=== PATIENT | male | born 1960 | race Caucasian/White ===

== ENCOUNTER 2020-08-09 10:31 | Emergency (ER) | payer OTHER, SELFPAY ==
--- NOTE | ~2020-08-09 | XR_ITS ---
EXAMINATION: XR CHEST CLINICAL INFORMATION: NG tube placement COMPARISON: None TECHNIQUE: Frontal view of the chest was obtained. FINDINGS: Enteric tube terminates in the stomach. Cardiac leads overlie the chest. The lungs are well expanded. There is no focal consolidation, edema, or effusion. No pneumothorax. The cardiomediastinal silhouette is within normal limits. No acute osseous abnormality. XR/XR chest 1V IMPRESSION: Clear lungs. Enteric tube terminating in the stomach.
--- NOTE | ~2020-08-09 | CT_ITS ---
EXAMINATION: CT ABDOMEN AND PELVIS WITHOUT CONTRAST CLINICAL INFORMATION: Nausea, vomiting and diarrhea for 3 weeks. COMPARISON: None TECHNIQUE: Multidetector volumetric imaging was performed from the superior aspect of the liver through the pubic symphysis. Sagittal and coronal reformatted images were obtained on the technologist's workstation. This CT examination was performed using dose optimization techniques as appropriate, variously including the following: *Automated exposure control *Adjustment of mA and/or kV according to patient size (this includes techniques or standardized protocols for targeted exams where dose is matched to indication/reason for exam; i.e. extremities or head) *Use of iterative reconstruction technique DLP: 575 mGy-cm FINDINGS: Evaluation of the lung bases is limited due to respiratory motion artifact, however, a small amount of dependent atelectasis is appreciated. The liver demonstrates normal size, contour and attenuation. The gallbladder is normal in appearance. The pancreas, spleen and adrenal glands are unremarkable. The stomach is overly distended and debris-filled. There is a prominent air-fluid level within the stomach. The pylorus and proximal portion of the duodenum are prominently distended. In the region of the ampulla there are prominent ill-defined coarse calcification in addition to soft tissue fullness which possibly represents the pancreatic head versus a mass (best appreciated on coronal image 56/97). There is abrupt transition to normal caliber distal duodenum. The jejunum and ileum are normal in caliber containing fluid and air. Normal caliber colon containing a normal amount of air. The appendix is normal in appearance. Symmetrically sized kidneys. No renal calculi or hydronephrosis. There is an approximately 1.8 cm cyst within the lower pole of the right kidney which contains some peripheral calcifications. A smaller simple appearing cyst is noted within the upper pole of the right kidney. Normal caliber abdominal aorta demonstrating moderate atherosclerotic disease. No gross retroperitoneal lymphadenopathy. Small fat-containing umbilical hernia noted. The bladder is well-distended and normal in appearance. Prostate gland is normal in size. Small fat-containing right inguinal hernia. Shotty bilateral inguinal lymph nodes. Mild to moderate degenerative changes of the spine. CT/CT abdomen pelvis wo con IMPRESSION: Significant distention of the stomach and proximal duodenal sweep felt to be secondary to a partially calcified mass either within the ampulla/duodenum or head of the pancreas. The remainder of small and large bowel is decompressed following this area. Endoscopy is recommended for further evaluation. Neoplasm not excluded.
[2020-08-09 10:39] VITALS: PULSE 96; RESP 18; TEMP 36.6; BMI 25.8
--- NOTE | 2020-08-09 10:56 | ED_ITS ---
HPI - Nausea/Vomiting/Diarrhea General Chief complaint: Nausea/Vomiting/Diarrhea Stated complaint: vomiting 3 weeks Time Seen by Provider: 08/09/20 10:34 Source: patient and family Mode of arrival: ambulatory Limitations: no limitations History of Present Illness HPI Narrative: 60 y/o male with history of HTN who presents with 3 weeks of nausea, vomiting, and diarrhea. He states he has had multiple episodes of non- bloody vomiting and diarrhea every day for the last 3 weeks. He reports 4-8 episodes of watery vomiting per day. He has lost almost 10 pounds. He has no abdominal pain, fever, chills. He has had no sick contacts, food bourne illness exposure or recent antibiotic use. He developed generalized weakness and shortness of breath with exertion the last few days so his encouraged him to come into the ER today for evaluation. On arrival he is hypotensive with BP 80's/50's, AAOx3. He is on lisinopril and chlorthaidine for BP which he took this morning before arrival. MD elicited complaint: nausea, vomiting and diarrhea Onset (ago): week(s) (3) Description of vomiting: food contents, watery and bilious Description of diarrhea: watery and loose Associated nausea: Yes Associated abdominal pain: No Location of pain: none Severity: severe Exacerbating factors: eating Relieving factors: none Associated symptoms: shortness of breath (with exertion, mild ) Related Data Allergies Allergy/AdvReac Type Severity Reaction Status Date / Time No Known Allergies Allergy Mild NONE Unverified 01/21/20 15:25 Review of Systems Review of Systems: Constitutional: No Fever, No Chills ENT/Mouth: No sore throat, No Rhinorrhea, No Swallowing Difficulty Eyes: No Eye Pain, No Swelling, No Redness Cardiovascular: No Chest Pain, + SOB, No Orthopnea, No Edema Respiratory: No Cough, No Sputum, No Wheezing, No dyspnea Gastrointestinal: + Nausea, + Vomiting, + Diarrhea, No abdominal Pain Genitourinary: No Dysuria, No Urinary Frequency, No Hematuria Musculoskeletal: No joint pain, No Myalgias Skin: No Skin Lesions, No rash Neuro: No Weakness, No Numbness, No Dizziness, No Headache Psych: No Anxiety/Panic, No Depression Heme/Lymph: No Bruising, No Lymphadenopathy Endocrine: No Polyuria, No Polydipsia Gastrointestinal: Gastrointestinal: Reports nausea PMFSH Past Medical History Medical History (Updated 08/09/20 @ 15:11 by REGINALDO James) HTN (hypertension) Surgical History (Updated 08/09/20 @ 10:42 by Joesph Khan) Hx of cervical spine surgery Social History Social History Smoking Status: Current every day smoker Physical Exam Vital Signs: Vital Signs: Last Vital Signs Temp 98 F 08/09/20 10:39 Pulse 91 08/09/20 12:45 Resp 16 08/09/20 12:45 BP 110/77 08/09/20 12:45 Pulse Ox 97 08/09/20 12:45 Body Mass Index 25.8 Appearance: Alert. Oriented X3. No acute distress. Eyes: Pupils equal, round and reactive to light. ENT: Pharynx normal. Dry mucus membranes. Neck: Normal inspection. Neck supple. CVS: Normal heart rate and rhythm. Pulses normal. Respiratory: No respiratory distress. Breath sounds normal. Abdomen: Softly distended and nontender. +hyperactive BS x4 Skin: Skin warm and dry. Normal skin color. Poor skin turgor. No rashes. Extremities: No lower extremity edema. Neuro: Oriented X 3. Non-focal Course Course Course Narrative: 60 y/o male presenting with 3 weeks of vomiting and diarrhea without any abdominal pain. He arrives hypotensive. Likely due to severe hypovolemia and dehydration. Will hydrate and get lab workup. Doubt bacterial infection for this duration without blood in stool. Will get stool studies and CT scan for further workup. Reevaluation(s) Reevaluation #1: Pt's BP responded quickly to IVF consistent with hypovolemia. He vomited 400cc clear liquids. Additional IVF and phenergan ordered. Reevaluation #2: Labs showing significant AMANDA with BUN/Cr 46/2.72, lactic acid 2.4 & WBC 13.4 likely due to dehydration and vomiting. Doubt sepsis. CT scan still pending. BP improved and stable. Reevaluation #3: CT scan showing Significant distention of the stomach and proximal duodenal sweep felt to be secondary to a partially calcified mass either within the ampulla/duodenum or head of the pancreas. The remainder of small and large bowel is decompressed following this area. Endoscopy is recommended for further evaluation. Neoplasm not excluded. His LFTs are normal. Lipase normal. Spoke with Dr. Fang from Surgery who reviewed with images - he is recommending transfer to [facility] for further surgical assessment and management. Will place NG tube for persistent nausea and vomiting. [facility] Transfer Line called. The CT scan results and recommendation for transfer were discussed with the patient and his at the bedside. All questions were answered. Additional Reevaluation(s): Spoke with Dr. Fried from [facility] who accepts the patient. Will transfer now. Consultations Consultation #1: Dr. Fang - Gen Surgery Consultation #2: Dr. Fried @ [facility] MDM - Nausea/Vomiting/Diarrhea Lab Data Attestation: I reviewed the patient's lab results. Result diagrams: 08/09/20 11:02 08/09/20 11:02 Labs: Lab Results 08/09/20 08/09/20 08/09/20 Range/Units 11:02 11:02 11:02 WBC 13.4 H (4.8-10.8) X10*3/uL RBC 4.56 L (4.60-5.80) X10*6/uL Hgb 14.6 (14.0-18.0) g/dl Hct 41.3 L (42-52) % MCV 90.6 (80-98) fL MCH 32.0 (27.0-33.0) pg MCHC 35.4 (31.0-36.0) g/dl RDW 11.6 (11.0-16.0) % Plt Count 510 H (160-400) X10*3/uL MPV 9.2 L (9.4-12.4) fL Immature Gran % (Auto) 0.7 H (0.0-0.4) % Neut % (Auto) 63.2 (45-73) % Lymph % (Auto) 23.1 (20-40) % [place] % (Auto) 7.6 (2-11) % Eos % (Auto) 5.0 H (0-4) % Baso % (Auto) 0.4 (0-2) % Lymph # (Auto) 3.1 (1.2-4.9) X10*3/uL [place] # (Auto) 1.0 (0.1-1.2) X10*3/uL Eos # (Auto) 0.7 H (0.0-0.4) X10*3/uL Baso # (Auto) 0.1 (0.0-0.2) X10*3/uL Abs Immat Gran (auto) 0.10 H (0.00-0.03) X10*3/uL Absolute Neuts (auto) 8.4 H (2.0-8.3) X10*3/uL Absolute Nucleated RBC 0.000 (0.0-0.012) X10*3/uL Nucleated RBC % (auto) 0.0 (0.0-0.2) /100WBC Hold Blue Top SEE NOTE Sodium 134 L (135-145) mmol/L Potassium 2.9 L (3.3-5.1) mmol/L Chloride 90 L (96-108) mmol/L Carbon Dioxide 24 (22-29) mmol/L Anion Gap 23 H (12-20) BUN 46 H (9-16) mg/dL Creatinine 2.72 H (0.5-1.4) mg/dL Estim Creat Clear Calc 28.6 Estimated GFR 24 Random Glucose 107 (60-115) mg/dL Lactic Acid (0.5-2.0) mmol/L Calcium 10.3 H (8.4-10.2) mg/dL Magnesium 1.7 (1.6-2.6) mg/dL Total Bilirubin 0.5 (0.0-1.0) mg/dL Direct Bilirubin 0.2 (0.0-0.5) mg/dL AST 20 (5-37) U/L ALT 37 (0-40) U/L Alkaline Phosphatase 113 (39-117) U/L Troponin I High Sens (<3.5-35.0) ng/L Total Protein 7.4 (6.5-8.0) g/dL Albumin 4.6 (3.5-5.0) g/dL Lipase (8-78) U/L Coronavirus (PCR) (Negative) Influenza Type A (PCR) (Negative) Influenza Type B (PCR) (Negative) RSV RNA Qual (PCR) (Negative) 08/09/20 08/09/20 08/09/20 Range/Units 11:02 11:02 11:02 WBC (4.8-10.8) X10*3/uL RBC (4.60-5.80) X10*6/uL Hgb (14.0-18.0) g/dl Hct (42-52) % MCV (80-98) fL MCH (27.0-33.0) pg MCHC (31.0-36.0) g/dl RDW (11.0-16.0) % Plt Count (160-400) X10*3/uL MPV (9.4-12.4) fL Immature Gran % (Auto) (0.0-0.4) % Neut % (Auto) (45-73) % Lymph % (Auto) (20-40) % [place] % (Auto) (2-11) % Eos % (Auto) (0-4) % Baso % (Auto) (0-2) % Lymph # (Auto) (1.2-4.9) X10*3/uL [place] # (Auto) (0.1-1.2) X10*3/uL Eos # (Auto) (0.0-0.4) X10*3/uL Baso # (Auto) (0.0-0.2) X10*3/uL Abs Immat Gran (auto) (0.00-0.03) X10*3/uL Absolute Neuts (auto) (2.0-8.3) X10*3/uL Absolute Nucleated RBC (0.0-0.012) X10*3/uL Nucleated RBC % (auto) (0.0-0.2) /100WBC Hold Blue Top Sodium (135-145) mmol/L Potassium (3.3-5.1) mmol/L Chloride (96-108) mmol/L Carbon Dioxide (22-29) mmol/L Anion Gap (12-20) BUN (9-16) mg/dL Creatinine (0.5-1.4) mg/dL Estim Creat Clear Calc Estimated GFR Random Glucose (60-115) mg/dL Lactic Acid 2.4 H* (0.5-2.0) mmol/L Calcium (8.4-10.2) mg/dL Magnesium (1.6-2.6) mg/dL Total Bilirubin (0.0-1.0) mg/dL Direct Bilirubin (0.0-0.5) mg/dL AST (5-37) U/L ALT (0-40) U/L Alkaline Phosphatase (39-117) U/L Troponin I High Sens 11.5 (<3.5-35.0) ng/L Total Protein (6.5-8.0) g/dL Albumin (3.5-5.0) g/dL Lipase 44 (8-78) U/L Coronavirus (PCR) (Negative) Influenza Type A (PCR) (Negative) Influenza Type B (PCR) (Negative) RSV RNA Qual (PCR) (Negative) 08/09/20 Range/Units 11:46 WBC (4.8-10.8) X10*3/uL RBC (4.60-5.80) X10*6/uL Hgb (14.0-18.0) g/dl Hct (42-52) % MCV (80-98) fL MCH (27.0-33.0) pg MCHC (31.0-36.0) g/dl RDW (11.0-16.0) % Plt Count (160-400) X10*3/uL MPV (9.4-12.4) fL Immature Gran % (Auto) (0.0-0.4) % Neut % (Auto) (45-73) % Lymph % (Auto) (20-40) % [place] % (Auto) (2-11) % Eos % (Auto) (0-4) % Baso % (Auto) (0-2) % Lymph # (Auto) (1.2-4.9) X10*3/uL [place] # (Auto) (0.1-1.2) X10*3/uL Eos # (Auto) (0.0-0.4) X10*3/uL Baso # (Auto) (0.0-0.2) X10*3/uL Abs Immat Gran (auto) (0.00-0.03) X10*3/uL Absolute Neuts (auto) (2.0-8.3) X10*3/uL Absolute Nucleated RBC (0.0-0.012) X10*3/uL Nucleated RBC % (auto) (0.0-0.2) /100WBC Hold Blue Top Sodium (135-145) mmol/L Potassium (3.3-5.1) mmol/L Chloride (96-108) mmol/L Carbon Dioxide (22-29) mmol/L Anion Gap (12-20) BUN (9-16) mg/dL Creatinine (0.5-1.4) mg/dL Estim Creat Clear Calc Estimated GFR Random Glucose (60-115) mg/dL Lactic Acid (0.5-2.0) mmol/L Calcium (8.4-10.2) mg/dL Magnesium (1.6-2.6) mg/dL Total Bilirubin (0.0-1.0) mg/dL Direct Bilirubin (0.0-0.5) mg/dL AST (5-37) U/L ALT (0-40) U/L Alkaline Phosphatase (39-117) U/L Troponin I High Sens (<3.5-35.0) ng/L Total Protein (6.5-8.0) g/dL Albumin (3.5-5.0) g/dL Lipase (8-78) U/L Coronavirus (PCR) NEGATIVE (Negative) Influenza Type A (PCR) NEGATIVE (Negative) Influenza Type B (PCR) NEGATIVE (Negative) RSV RNA Qual (PCR) NEGATIVE (Negative) ECG Data Attestation: I personally reviewed and interpreted this ECG as follows: ECG interpretation date: 08/09/20 ECG interpretation time: 12:12 Interpretation: normal sinus rhythm, HR 78 bpm, incomplete RBBB, normal ID int erval, normal QTc, no ST segment elevations Critical Care Time Critical Care Time Critical Care Time: Yes Total Critical Care Time: 40 Attestation: I attest to critical care time spent with this patient who presented with severe hypovolemia, hypotension, AMANDA and probable pancreatic mass. Required multiple liters of IVF and reassessment of cardiopulmonary status. Time spent reviewing imaging, consulting specialists and coordinating care and transfer to [facility]. Discharge Plan Discharge Clinical Impression: Mass of pancreas, AMANDA (acute kidney injury), Hypovolemia, Gastric outlet obstruction Patient Disposition: Xfer [facility] Transfer Details: [facility] for GI/Surgical specialists
--- NOTE | 2020-08-09 11:03 | ECG_ITS ---
Test Reason : GEN WEAKNESS Blood Pressure : / mmHG Vent. Rate : 078 BPM Atrial Rate : 078 BPM P-R Int : 166 ms QRS Dur : 114 ms QT Int : 398 ms P-R-T Axes : 031 002 057 degrees QTc Int : 453 ms Normal sinus rhythm Incomplete right bundle branch block Borderline ECG No previous ECGs available Referred By: Marilyn Snell Electronically Signed By:NOELLE RIZO MD
[2020-08-09 11:09] LABS: MANUAL DIFF FLAG NO
[2020-08-09 11:12] LABS: Basophils Absolute Auto 0.1 X10*3/uL (0.0-0.2); Basophils Percent Auto 0.4 % (0-2); Eosinophils Absolute Auto 0.7 X10*3/uL (0.0-0.4); Hematocrit 41.3 % (42-52); Hemoglobin 14.6 g/dl (14.0-18.0); Imm Gran Pct Auto 0.7 % (0.0-0.4); Lymphocytes Absolute Auto 3.1 X10*3/uL (1.2-4.9); Lymphocytes Percent Auto 23.1 % (20-40); Mean Corpuscular HGB Conc 35.4 g/dl (31.0-36.0); Mean Corpuscular Volume 90.6 fL (80-98); Mean Platelet Volume 9.2 fL (9.4-12.4); Monocytes Percent Auto 7.6 % (2-11); Neutrophils Absolute Auto 8.4 X10*3/uL (2.0-8.3); Neutrophils Percent Auto 63.2 % (45-73); Platelet Count 510 X10*3/uL (160-400); Red Blood Count 4.56 X10*6/uL (4.60-5.80); Red Cell Distribution Width 11.6 % (11.0-16.0); White Blood Count 13.4 X10*3/uL (4.8-10.8)
[2020-08-09] MEDS: ondansetron HCL 4 MG/2 ML VIAL IVPUSH (11:16)
[2020-08-09] MEDS: 0.9 % Sodium Chloride 1,000 ML 999 ML IVCONT ×2 (11:16→11:34)
[2020-08-09 11:17] VITALS: BP 98/62; PULSE 89; RESP 18
[2020-08-09 11:29] LABS: Lactic Acid 2.4 mmol/L (0.5-2.0)
[2020-08-09 11:31] LABS: Lipase 44 U/L (8-78)
[2020-08-09 11:34] LABS: Alanine Aminotransferase 37 U/L (0-40); Albumin Level 4.6 g/dL (3.5-5.0); Alkaline Phosphatase 113 U/L (39-117); Anion Gap 23 (12-20); Aspartate Amino Transferase 20 U/L (5-37); Bilirubin Direct 0.2 mg/dL (0.0-0.5); Bilirubin Total 0.5 mg/dL (0.0-1.0); Blood Urea Nitrogen 46 mg/dL (9-16); Calcium 10.3 mg/dL (8.4-10.2); Carbon Dioxide 24 mmol/L (22-29); Chloride 90 mmol/L (96-108); Creatinine Clr Calc Pharmacy 28.6; Estimated Glomerular Filt Rate 24; Glucose Random 107 mg/dL (60-115); Magnesium 1.7 mg/dL (1.6-2.6); Potassium 2.9 mmol/L (3.3-5.1); Sodium 134 mmol/L (135-145); Total Protein 7.4 g/dL (6.5-8.0)
[2020-08-09 11:46] LABS: Troponin-I High Sensitivity 11.5 ng/L (<3.5-35.0)
[2020-08-09] MEDS: Potassium Chloride/H20 10 MEQ/100 ML PIGGYBACK 100 MEQ IV ×2 (12:04→13:10)
[2020-08-09 12:45] VITALS: BP 110/77; PULSE 91; RESP 16; O2SAT 97
[2020-08-09 12:58] LABS: Influenza A PCR NEGATIVE (Negative); Influenza B PCR NEGATIVE (Negative); Resp Syncy Virus RNA Qual PCR NEGATIVE (Negative); SARS COV2 PCR INHOUSE NEGATIVE (Negative)
[2020-08-09 13:07] LABS: Reflex Lactate? Lactic Acid Added
--- NOTE | 2020-08-09 14:50 | PC.NURSE ---
@[id number] REIGNALDO Solis REQUESTS CALL OUT TO [facility] PT [place] LINE [phone] OLGA ANSWERS,TAKES PT INFO, CALL BACK NUMBER AND ASKS TO SPEAK WITH LINDSAY
[2020-08-09] MEDS: Lactated Ringers 1,000 ML 999 ML IV (15:15)
[2020-08-09] MEDS: LORazepam 2 MG/ML VIAL 1 MG IVPUSH (15:54)
[2020-08-09] MEDS: Lidocaine HCl 4 % Laryng-O-Jet 4 ML 1 APPL TOPICAL (15:54)
--- NOTE | 2020-08-09 15:59 | PC.NURSE ---
ngt placed, 2200 ccs suctioned, currently on intermittent wall suction
--- NOTE | 2020-08-09 16:30 | PC.NURSE ---
RN TO RN REPORT GIVEN TO [facility]
[2020-08-09 16:36] VITALS: BP 117/69; PULSE 97; RESP 20; TEMP 37; O2SAT 98
== END 2020-08-09 17:09 | disposition short-term general hospital (02) ==
PROVIDERS: Physician Assistant; Emergency Provider Emergency Medicine; PCP Internal Medicine
DX: K86.9 Disease of pancreas, unspecified (principal); N17.9 Acute kidney failure, unspecified; E86.1 Hypovolemia; K31.1 Adult hypertrophic pyloric stenosis; R11.2 Nausea with vomiting, unspecified; R19.7 Diarrhea, unspecified; Z20.822 Contact with and (suspected) exposure to COVID-19; I10 Essential (primary) hypertension
CPT/HCPCS: 0241U; 36415; 71045; 74176; 80048; 80076; 83605; 83690; 83735; 84484; 85025; 87040; 93005; 96360; 96361; 96365; 96368; 96374; 96375; 99285; 99291; J2060; J2405; J2550